=== PATIENT | female | born 1985 | race Caucasian/White ===

== ENCOUNTER 2022-06-11 13:16 | Emergency (ER) | payer OTHER, SELFPAY | END 2022-06-11 17:18 | disposition left against medical advice (07) | PROVIDERS: Emergency Provider Emergency Medicine | DX: S05.90XA Unspecified injury of unspecified eye and orbit, initial encounter (principal); X58.XXXA Exposure to other specified factors, initial encounter; Y93.9 Activity, unspecified; Y92.9 Unspecified place or not applicable; Y99.0 Civilian activity done for income or pay ==